=== PATIENT | male | born 1970 | race Caucasian/White ===

== ENCOUNTER 2022-11-05 11:33 | Emergency (ER) | payer MEDICAID, SELFPAY ==
[2022-11-05 11:40] VITALS: BP 141/90; PULSE 86; RESP 18; TEMP 36.8; O2SAT 99; BMI 28.8
--- NOTE | 2022-11-05 11:51 | XR_ITS ---
FINAL REPORT CLINICAL HISTORY: PAIN limited rom FINDINGS: LEFT SHOULDER 3 views of the left shoulder were obtained. There is no acute fracture or dislocation. There is mild acromioclavicular joint and moderate to severe glenohumeral joint degenerative change. There is a presumed loose body superior to the distal clavicle measuring 14 mm. IMPRESSION: Degenerative changes with no acute bony abnormality. 14 mm presumed loose body superior to the distal clavicle. Reviewed, Interpreted and Dictated by Calin Hamm III, MD Transcribed by Yasmeen Medellin Authenticated and [facility]
--- NOTE | 2022-11-05 11:58 | EXP.UTC ---
Discharge Plan Disposition Patient Disposition: Home, Self-Care Condition: Good Prescriptions Prescriptions: New methylprednisolone [Medrol (Eduardo)] 4 mg tablets,dose pack See Rx Instructions .Route .COMPLEX 6 Days Qty: 21 0RF Rx Instructions: taper pack; diclofenac sodium [Arthritis Pain (diclofenac)] 1 % gel 2 g topical QID Qty: 100 0RF Rx Instructions: apply to right knee and left shoulder as prescribed Referrals Follow up/Referrals: Marc Ward JR, MD [Physician] - See instructions (Call office for appointment) Anna Ortiz [Primary Care Provider] - See instructions Activity Restrictions/Add. Instructions Additional Instructions/Restrictions: Use topical medication as prescribed for pain Follow up with your Family Doctor Follow up with Orhtopedics if pain continues or worsens call office for appointment Return if needed Straight to ER if any life threatening symptoms Clinical Impressions Clinical Impression: Acute shoulder pain Qualifiers: Laterality: left Qualified Code(s): M25.512 - Pain in left shoulder Chronic knee pain Qualifiers: Laterality: right Qualified Code(s): M25.561 - Pain in right knee Instructions Patient Instructions: DI for Chronic Pain -- Adult, Diclofenac Topical (arthritis pain), Methylprednisolone Discharge ED Provider: Vashti Solis [facility] [place] General Stated complaint: RT knee LT shoulder pain no accident Mode of Arrival: Ambulatory Source of Information: Patient Limitations: No Limitations Time Seen by Provider: 11/05/22 11:58 Description of Symptoms (Recalled from Triage Doc. by RN): PATIENT C/O RIGHT KNEE AND LEFT SHOULDER PAIN X 1 WEEK. NO KNOWN INJURY HEENT Symptoms (Recalled from RN notes): No Resp Symptoms (Recalled from RN notes): No Skin Symptoms (Recalled from RN notes): No MS Symptoms (Recalled from RN notes): Yes Functional Status (Recalled from RN notes): WNL History of Present Illness Provider Complaint: Patient states that he has chronic knee pain and states he has arthritis in his right knee that has been acting up States that he has also been having pain in his left shoulder that is worse with movement and feels like it catches at times States pain worse when he tries to raise it up Denies known injury States that just acts up sometimes Related Data Previous Rx's Medication Instructions Recorded diclofenac sodium 1 % topical gel 2 g topical QID #100 grams 11/05/22 (Arthritis Pain (diclofenac)) methylprednisolone 4 mg tablets in See Rx Instructions .Route 11/05/22 a dose pack (Medrol (Eduardo)) .COMPLEX 6 days #21 tabs Allergies Allergy/AdvReac Type Severity Reaction Status Date / Time No Known Allergies Allergy Verified 11/05/22 11:54 Worker's Comp Is this a Worker's Comp case?: No [facility] Disclaimer: The information contained in this section may have been updated after the patient was seen, as this information can be updated by other users. Medical History (Updated 11/05/22 @ 12:43 by Vashti Solis APRN) No significant past medical history Social History (Updated 11/05/22 @ 11:54 by Silvia Gibbons RN) Smoking Status: Current every day smoker alcohol intake: never current occupational status: other Travel in the last 8 weeks: None ROS Obtained: Yes All systems reviewed & no additional complaints except as documented and Yes Systems reviewed as appropriate & no additional complaints except as documented Constitutional Constitutional: Reports system reviewed and no additional complaints, except as documented and Reports as per HPI ENT Ears, Nose, Mouth, and Throat: Reports system reviewed and no additional complaints, except as documented and Reports as per HPI Cardiovascular Cardiovascular: Reports system reviewed and no additional complaints, except as documented, Reports as per HPI, Denies chest pain, Denies chest pain at rest, Denies dyspnea and Denies dyspnea on exertion Respiratory Respiratory:
[2022-11-05 12:44] VITALS: BP 141/90; PULSE 86; RESP 18; TEMP 36.8; O2SAT 99
== END 2022-11-05 12:53 | disposition home or self-care (01) ==
PROVIDERS: Emergency Provider Nurse Practitioner; PCP Nurse Practitioner Family
DX: M25.512 Pain in left shoulder (principal); M25.561 Pain in right knee
CPT/HCPCS: 73030; 96372; 99212; 99213; G0463

== ENCOUNTER 2023-01-13 10:00 | Outpatient (RCR) | payer MEDICAID, SELFPAY | END 2023-02-15 10:35 | disposition home or self-care (01) | LOC: PT 10:00 | PROVIDERS: PCP Nurse Practitioner Family; Visit Provider Nurse Practitioner Family | DX: M19.012 Primary osteoarthritis, left shoulder (principal) | CPT/HCPCS: 97010; 97014; 97110; 97140; 97163; 97164; 97530; G0283 ==